=== PATIENT | male | born 1985 | race Caucasian/White ===

== ENCOUNTER 2017-12-14 09:41 | Emergency (ER) | payer OTHER ==
[~2017-12-14] VITALS: Ht 165.1 cm; Wt 63.5 kg
[2017-12-14] MEDS ORDERED: TDAP DIPH,PERTUSS,TET VAC/PF 0.5 ML DISP.SYRIN IM ONE ×2 (10:09→10:15)
[2017-12-14] MEDS ORDERED: LIDOCAINE HCL 2% 20 ML VIAL TP ONE (10:15)
[2017-12-14 10:26] VITALS: BP 139/77
--- NOTE | 2017-12-14 10:28 | NUR ---
PT WAS EVALUATED BY DR ONEILL. PT WAS D/C TO HOME. D/C INSTRUCTIONS GIVEN TO THE PT.
== END 2017-12-14 10:32 | disposition home or self-care (01) ==
LOC: ER 09:41
DX: S61.411A Laceration without foreign body of right hand, initial encounter (principal); W26.8XXA Contact with other sharp object(s), not elsewhere classified, initial encounter; Y93.89 Activity, other specified; Y92.89 Other specified places as the place of occurrence of the external cause; Y99.8 Other external cause status
CPT/HCPCS: 12001; 90471; 90715; 99283; A4663